=== PATIENT | male | born 1995 | race Caucasian/White ===

== ENCOUNTER 2019-10-08 12:30 | Emergency (ER) | payer BC ==
[~2019-10-08] VITALS: Ht 177.8 cm; Wt 77.1 kg
[2019-10-08] MEDS ORDERED: CELEXA20 MG PO (12:52)
[2019-10-08] MEDS ORDERED: TUSNEL LIQUID178 ML PO (18:15)
[2019-10-08] MEDS ORDERED: LEVAQUIN750 MG PO (18:15)
[2019-10-08] MEDS ORDERED: DOLOGEN CAPLET1 EACH PO (18:15)
== END 2019-10-08 18:19 | disposition home or self-care (01) ==
LOC: ER 12:30
DX: J06.9 Acute upper respiratory infection, unspecified (principal)

== ENCOUNTER 2020-06-10 15:31 | Emergency (ER) | payer BC ==
[~2020-06-10] VITALS: Ht 175.3 cm; Wt 79.4 kg
[~2020-06-10 15:31] MED LIST: CELEXA20 MG PO; DOLOGEN CAPLET1 EACH PO; LEVAQUIN750 MG PO; TUSNEL LIQUID178 ML PO
== END 2020-06-10 18:27 | disposition home or self-care (01) ==
LOC: ER 15:31
DX: B33.8 Other specified viral diseases (principal); B96.0 Mycoplasma pneumoniae [M. pneumoniae] as the cause of diseases classified elsewhere; Z03.818 Encounter for observation for suspected exposure to other biological agents ruled out

== ENCOUNTER 2021-02-20 09:54 | Emergency (ER) | payer BC ==
[~2021-02-20] VITALS: Ht 175.3 cm; Wt 79.4 kg
[2021-02-20] MEDS ORDERED: SINGULAIR 10MG10 MG PO (10:13)
[2021-02-20] MEDS ORDERED: MEDROLPACK PO (15:37)
[2021-02-20] MEDS ORDERED: TESSALON PERLE100 M1 PO (15:37)
[2021-02-20] MEDS ORDERED: LEVOFLOXACIN750 MG PO (15:37)
[2021-02-20] MEDS ORDERED: PROMETH-CODEIN 65 ML PO (15:37)
== END 2021-02-20 16:19 ==
LOC: ER 09:54
DX: B34.9 Viral infection, unspecified (principal); B96.0 Mycoplasma pneumoniae [M. pneumoniae] as the cause of diseases classified elsewhere; Z03.818 Encounter for observation for suspected exposure to other biological agents ruled out